=== PATIENT | female | born 1955 | race Caucasian/White ===

== ENCOUNTER 2019-07-17 11:22 | Inpatient (IN) ==
[2019-07-17] MEDS ORDERED: SODIUM CHLORIDE 0.9% 1,000 ML IV STA ×2 (11:58→12:52)
[2019-07-17] MEDS ORDERED: ALBUTEROL 2.5 MG/3 ML NEB RESP TX STA (11:58)
[2019-07-17] MEDS ORDERED: PIPERACILLIN/TAZOBACTAM 3,375 MG in SODIUM CHLORIDE 0.9% 100 ML IV STA (12:19)
[2019-07-17 12:21] LABS: ABG Base Excess -1.7 MMOL/L (-2.5-2.5); ABG HCO3 22.9 MMOL/L (20-26); ABG PCO2 28.3 MM HG (35-48); ABG PH 7.472 (7.35-7.45); ABG PO2 65.6 MM HG (80-95); Allen Test Positive
[2019-07-17] MEDS ORDERED: methylPREDNISolone SOD SUC 125 MG/2 ML VIAL IV STA (12:51)
[2019-07-17 13:08] LABS: Basophils # 0.1 10*3/uL (0.0-0.2); Basophils % 0.4 % (0.0-0.8); Eosinophils # 0.1 10*3/uL (0.0-0.87); Eosinophils % 0.5 % (0.00-10.9); Hematocrit 36.9 VOL% (35.7-47.0); Hemoglobin 11.7 GM/DL (12.0-16.0); Immature Granulocytes % 0.4 %; Immature Granulocytes Absolute 0.05 #; Lymphocytes # 2.3 10*3/uL (1.4-4.0); Lymphocytes % 18.7 % (21.3-54.2); Mean Corpuscular HGB Conc 31.7 GM/DL (32-36); Mean Corpuscular Volume 87.2 FL (87-102); Monocytes % 6.4 % (1.7-12.7); Neutrophils % 73.6 % (38.7-73.9); Platelet Count 416 T/CUMM (130-400); Red Blood Count 4.23 MC/CUMM (3.8-5.5); White Blood Count 12.3 T/CUMM (4-12)
[2019-07-17 13:17] LABS: Partial Thromboplastin Time 32.8 SECS (20.8-36.0)
[2019-07-17 13:24] LABS: PT Patient Result 42.8 SECS (9.6-12.2)
[2019-07-17 14:18] LABS: Alanine Aminotransferase 116 U/L (13-56); Alkaline Phosphatase 91 U/L (45-117); Aspartate Amino Transferase 393 U/L (0-37); Bilirubin,Total < 0.39 MG/DL (0.2-1.0); Blood Urea Nitrogen 8 MG/DL (7-18); Calcium 8.7 MG/DL (8.5-10.1); Estimated Glom Filtration Rate 80 ML/MIN; Glucose 108 MG/DL (74-106); Osmolality,Calculated 277.4 MOS/KG (273-304)
[2019-07-17 14:31] LABS: Apearance,Urine CLEAR (Clear); Bilirubin,Urine Negative (Negative); Blood, Urine Negative (Negative); Glucose,Urine (UA) Negative (Negative); Ketones,Urine Negative (Negative); Nitrite,Urine Negative (Negative); Protein,Urine Negative; RBC,Urine 1 /HPF (0-4); Urine Color Yellow (Yellow); Urine Specific Gravity 1.013 (1.001-1.035); Urine Urobilinogen < 2.0 EU/DL (0.2-1.0); WBC,Urine 1 /HPF (0-6)
[2019-07-17] MEDS ORDERED: SODIUM CHLORIDE 0.45% 1,000 ML IV SCH (15:30)
[2019-07-17] MEDS ORDERED: hydrALAZINE 20 MG/1 ML VIAL IV PRN (15:51)
[2019-07-17] MEDS: ALBUTEROL/IPRATROPIUM 3 ML NEB RESP TX SCH ×3 (16:10→22:50)
[2019-07-17] MEDS ORDERED: INFLUENZA VIRUS VACCINE 0.5 ML SYRINGE IM ONE (16:28)
[2019-07-17] MEDS: LEVOFLOXACIN INJ 500 MG in PREMIX 1 EACH IV SCH (17:01)
[2019-07-17] MEDS: methylPREDNISolone SOD SUC 125 MG/2 ML VIAL IV SCH (22:35)
[2019-07-17] MEDS: SIMVASTATIN 40 MG TABLET PO SCH (22:35)
[2019-07-17] MEDS: MONTELUKAST 10 MG TABLET PO SCH (22:35)
[2019-07-18] MEDS: ALBUTEROL/IPRATROPIUM 3 ML NEB RESP TX SCH ×6 (02:35→23:30)
[2019-07-18] MEDS ORDERED: MORPHINE 4 MG/1 ML VIAL ONE (03:08)
[2019-07-18] MEDS ORDERED: NITROGLYCERIN SL 0.4 MG TABLET SL ONE (03:09)
[2019-07-18] MEDS: NITROGLYCERIN SL 0.4 MG TABLET SL PRN ×2 (03:13→03:18)
[2019-07-18] MEDS: MORPHINE 4 MG/1 ML VIAL IV PRN ×5 (03:22→12:21)
[2019-07-18 03:24] LABS: ABG Base Excess -4.3 MMOL/L (-2.5-2.5); ABG HCO3 20.8 MMOL/L (20-26); ABG Oxygen Saturation 94.3 % (95-100); ABG PCO2 28.7 MM HG (35-48); ABG PH 7.426 (7.35-7.45); ABG PO2 68.8 MM HG (80-95); ABG TCO2 16.7 MMOL/L (23-27)
[2019-07-18] MEDS ORDERED: FUROSEMIDE 20 MG/2 ML VIAL IV ONE (03:32)
[2019-07-18 03:40] LABS: Basophils % 0.1 % (0.0-0.8); Hematocrit 35.2 VOL% (35.7-47.0); Hemoglobin 11.1 GM/DL (12.0-16.0); Immature Granulocytes % 0.6 %; Immature Granulocytes Absolute 0.07 #; Lymphocytes # 0.8 10*3/uL (1.4-4.0); Lymphocytes % 6.8 % (21.3-54.2); Mean Corpuscular HGB Conc 31.5 GM/DL (32-36); Mean Corpuscular Volume 86.7 FL (87-102); Monocytes % 2.1 % (1.7-12.7); Neutrophils % 90.4 % (38.7-73.9); Platelet Count 471 T/CUMM (130-400); Red Blood Count 4.06 MC/CUMM (3.8-5.5); Red Cell Distribution Width 17.1 % (9.3-17.3); White Blood Count 11.4 T/CUMM (4-12)
[2019-07-18 04:05] LABS: Calcium 7.5 MG/DL (8.5-10.1); Osmolality,Calculated 289.8 MOS/KG (273-304)
[2019-07-18 04:15] LABS: CKMB % 0.2 %; Troponin I < 0.015 NG/ML (0.00-0.045)
[2019-07-18 08:31] LABS: CKMB % 0.2 %; Troponin I < 0.015 NG/ML (0.00-0.045)
[2019-07-18] MEDS: methylPREDNISolone SOD SUC 125 MG/2 ML VIAL IV SCH (08:36)
[2019-07-18] MEDS: LEVOFLOXACIN INJ 500 MG in PREMIX 1 EACH IV SCH (08:36)
[2019-07-18] MEDS: methylPREDNISolone SOD SUC 40 MG/1 ML VIAL IV SCH ×2 (12:18→22:38)
[2019-07-18] MEDS: oxyCODONE/ACETAMINOPHEN 5-325 MG TABLET PO SCH ×3 (12:22→23:57)
[2019-07-18 13:35] LABS: CKMB % 0.2 %; Troponin I < 0.015 NG/ML (0.00-0.045)
[2019-07-18 17:25] LABS: Troponin I < 0.015 NG/ML (0.00-0.045)
[2019-07-18] MEDS: SIMVASTATIN 40 MG TABLET PO SCH (20:54)
[2019-07-18] MEDS: MONTELUKAST 10 MG TABLET PO SCH (20:55)
[2019-07-18] MEDS: DOXEPIN 100 MG CAPSULE PO SCH (20:55)
[2019-07-18] MEDS: OLANZapine 5 MG TABLET PO SCH (20:55)
[2019-07-18] MEDS: METOPROLOL TARTRATE 25 MG TABLET PO SCH (20:55)
[2019-07-18] MEDS ORDERED: traZODone 50 MG TABLET PO ONE (23:18)
[2019-07-19] MEDS: ALBUTEROL/IPRATROPIUM 3 ML NEB RESP TX SCH ×6 (03:09→23:37)
[2019-07-19 05:23] LABS: Basophils % 0.2 % (0.0-0.8); Hematocrit 33.2 VOL% (35.7-47.0); Hemoglobin 10.5 GM/DL (12.0-16.0); Immature Granulocytes % 1.1 %; Immature Granulocytes Absolute 0.21 #; Lymphocytes # 1.2 10*3/uL (1.4-4.0); Lymphocytes % 6.4 % (21.3-54.2); Mean Corpuscular HGB Conc 31.6 GM/DL (32-36); Mean Corpuscular Volume 88.1 FL (87-102); Mean Platelet Volume 9.4 FL (9.6-12.0); Monocytes % 3.2 % (1.7-12.7); Neutrophils % 89.1 % (38.7-73.9); Platelet Count 507 T/CUMM (130-400); Red Blood Count 3.77 MC/CUMM (3.8-5.5); Red Cell Distribution Width 17.7 % (9.3-17.3); White Blood Count 19.2 T/CUMM (4-12)
[2019-07-19 05:29] LABS: INR 2.4
[2019-07-19 05:30] LABS: PT Patient Result 25.9 SECS (9.6-12.2)
[2019-07-19 05:50] LABS: Calcium 9.7 MG/DL (8.5-10.1); Osmolality,Calculated 293.6 MOS/KG (273-304)
[2019-07-19] MEDS: oxyCODONE/ACETAMINOPHEN 5-325 MG TABLET PO SCH ×4 (06:27→23:44)
[2019-07-19] MEDS: LEVOFLOXACIN INJ 500 MG in PREMIX 1 EACH IV SCH (08:17)
[2019-07-19] MEDS: BENZTROPINE 1 MG TABLET PO SCH (08:18)
[2019-07-19] MEDS: FLUoxetine 10 MG CAPSULE PO SCH (08:18)
[2019-07-19] MEDS: METOPROLOL TARTRATE 25 MG TABLET PO SCH ×2 (08:18→21:18)
[2019-07-19] MEDS: methylPREDNISolone SOD SUC 40 MG/1 ML VIAL IV SCH ×2 (12:23→23:46)
[2019-07-19] MEDS: OLANZapine 5 MG TABLET PO SCH (21:17)
[2019-07-19] MEDS: MONTELUKAST 10 MG TABLET PO SCH (21:18)
[2019-07-19] MEDS: DOXEPIN 100 MG CAPSULE PO SCH (21:18)
[2019-07-20] MEDS: ALBUTEROL/IPRATROPIUM 3 ML NEB RESP TX SCH ×6 (03:43→23:09)
[2019-07-20] MEDS: oxyCODONE/ACETAMINOPHEN 5-325 MG TABLET PO SCH ×4 (06:12→23:31)
[2019-07-20 08:13] LABS: INR 1.5; PT Patient Result 16.3 SECS (9.6-12.2)
[2019-07-20 08:40] LABS: Alanine Aminotransferase 69 U/L (13-56); Albumin 2.5 G/DL (3.4-5.0); Alkaline Phosphatase 68 U/L (45-117); Aspartate Amino Transferase 50 U/L (0-37); Bilirubin,Direct < 0.100 MG/DL (0.0-0.20); Bilirubin,Indirect 0.3 MG/DL (0.0-1.0); Bilirubin,Total < 0.39 MG/DL (0.2-1.0); Total Protein 6.7 G/DL (6.4-8.3)
[2019-07-20 10:06] LABS: INR 1.5; PT Patient Result 16.1 SECS (9.6-12.2)
[2019-07-20] MEDS: LEVOFLOXACIN INJ 500 MG in PREMIX 1 EACH IV SCH (10:22)
[2019-07-20] MEDS: METOPROLOL TARTRATE 25 MG TABLET PO SCH ×2 (10:32→20:07)
[2019-07-20] MEDS: BENZTROPINE 1 MG TABLET PO SCH (10:32)
[2019-07-20] MEDS: LEVOFLOXACIN 500 MG TABLET PO SCH (10:32)
[2019-07-20] MEDS: methylPREDNISolone SOD SUC 40 MG/1 ML VIAL IV SCH ×2 (10:32→23:29)
[2019-07-20] MEDS: FLUoxetine 10 MG CAPSULE PO SCH (10:32)
[2019-07-20] MEDS: DOXEPIN 100 MG CAPSULE PO SCH (20:06)
[2019-07-20] MEDS: MONTELUKAST 10 MG TABLET PO SCH (20:07)
[2019-07-20] MEDS: OLANZapine 5 MG TABLET PO SCH (20:07)
[2019-07-20] MEDS: MORPHINE 4 MG/1 ML VIAL IV PRN (21:48)
[2019-07-20] MEDS: WARFARIN 5 MG TABLET PO SCH (21:51)
[2019-07-21] MEDS: ALBUTEROL/IPRATROPIUM 3 ML NEB RESP TX SCH ×5 (03:21→19:34)
[2019-07-21 05:07] LABS: Basophils % 0.1 % (0.0-0.8); Hematocrit 34.8 VOL% (35.7-47.0); Hemoglobin 10.8 GM/DL (12.0-16.0); Immature Granulocytes % 1.3 %; Lymphocytes # 1.7 10*3/uL (1.4-4.0); Lymphocytes % 11.4 % (21.3-54.2); Mean Corpuscular Volume 88.3 FL (87-102); Mean Platelet Volume 9.4 FL (9.6-12.0); Monocytes % 2.7 % (1.7-12.7); Neutrophils % 84.5 % (38.7-73.9); Platelet Count 573 T/CUMM (130-400); Red Blood Count 3.94 MC/CUMM (3.8-5.5); Red Cell Distribution Width 17.6 % (9.3-17.3); White Blood Count 15.3 T/CUMM (4-12)
[2019-07-21 05:12] LABS: INR 1.2; PT Patient Result 12.7 SECS (9.6-12.2)
[2019-07-21] MEDS: oxyCODONE/ACETAMINOPHEN 5-325 MG TABLET PO SCH ×3 (05:44→18:05)
[2019-07-21] MEDS: METOPROLOL TARTRATE 25 MG TABLET PO SCH ×2 (08:05→20:39)
[2019-07-21] MEDS: FLUoxetine 10 MG CAPSULE PO SCH (08:06)
[2019-07-21] MEDS: BENZTROPINE 1 MG TABLET PO SCH (08:06)
[2019-07-21] MEDS: LEVOFLOXACIN 500 MG TABLET PO SCH (09:03)
[2019-07-21] MEDS ORDERED: BISACODYL 10 MG SUPP RECTAL ONE (09:17)
[2019-07-21] MEDS: POLYETHYLENE GLYCOL POWDER 17 GM PACK PO SCH (09:36)
[2019-07-21] MEDS: methylPREDNISolone SOD SUC 40 MG/1 ML VIAL IV SCH ×2 (11:12→23:25)
[2019-07-21] MEDS: ALUMINUM/MAGNES/SIMETH MAX STR 30 ML UDCUP PO PRN (11:50)
[2019-07-21] MEDS: MONTELUKAST 10 MG TABLET PO SCH (20:39)
[2019-07-21] MEDS: WARFARIN 5 MG TABLET PO SCH (20:39)
[2019-07-21] MEDS: DOXEPIN 100 MG CAPSULE PO SCH (20:40)
[2019-07-21] MEDS: OLANZapine 5 MG TABLET PO SCH (20:40)
[2019-07-22] MEDS: oxyCODONE/ACETAMINOPHEN 5-325 MG TABLET PO SCH ×4 (00:03→18:27)
[2019-07-22] MEDS: ALBUTEROL/IPRATROPIUM 3 ML NEB RESP TX SCH ×7 (00:14→23:20)
[2019-07-22] MEDS: FLUoxetine 10 MG CAPSULE PO SCH (08:32)
[2019-07-22] MEDS: METOPROLOL TARTRATE 25 MG TABLET PO SCH ×2 (08:32→20:04)
[2019-07-22] MEDS: POLYETHYLENE GLYCOL POWDER 17 GM PACK PO SCH (08:32)
[2019-07-22] MEDS: BENZTROPINE 1 MG TABLET PO SCH (08:32)
[2019-07-22] MEDS: LEVOFLOXACIN 500 MG TABLET PO SCH (08:34)
[2019-07-22] MEDS: predniSONE 20 MG TABLET PO SCH (09:51)
[2019-07-22 16:44] LABS: INR 1.6; PT Patient Result 17.2 SECS (9.6-12.2)
[2019-07-22] MEDS: ALUMINUM/MAGNES/SIMETH MAX STR 30 ML UDCUP PO PRN (19:46)
[2019-07-22] MEDS: WARFARIN 5 MG TABLET PO SCH (20:04)
[2019-07-22] MEDS: OLANZapine 5 MG TABLET PO SCH (20:04)
[2019-07-22] MEDS: MONTELUKAST 10 MG TABLET PO SCH (20:04)
[2019-07-22] MEDS: DOXEPIN 100 MG CAPSULE PO SCH (20:04)
[2019-07-23] MEDS: oxyCODONE/ACETAMINOPHEN 5-325 MG TABLET PO SCH ×3 (02:20→09:28)
[2019-07-23] MEDS: ALBUTEROL/IPRATROPIUM 3 ML NEB RESP TX SCH ×6 (04:00→23:20)
[2019-07-23 05:27] LABS: Basophils % 0.2 % (0.0-0.8); Eosinophils % 0.1 % (0.00-10.9); Hematocrit 34.1 VOL% (35.7-47.0); Hemoglobin 10.5 GM/DL (12.0-16.0); Immature Granulocytes % 1.2 %; Immature Granulocytes Absolute 0.22 #; Lymphocytes # 4.6 10*3/uL (1.4-4.0); Lymphocytes % 24.9 % (21.3-54.2); Mean Corpuscular HGB Conc 30.8 GM/DL (32-36); Mean Corpuscular Volume 88.1 FL (87-102); Mean Platelet Volume 9.1 FL (9.6-12.0); Monocytes % 7.1 % (1.7-12.7); Neutrophils % 66.5 % (38.7-73.9); Platelet Count 592 T/CUMM (130-400); Red Blood Count 3.87 MC/CUMM (3.8-5.5); Red Cell Distribution Width 17.4 % (9.3-17.3); White Blood Count 18.3 T/CUMM (4-12)
[2019-07-23 05:28] LABS: INR 1.6; PT Patient Result 17.4 SECS (9.6-12.2)
[2019-07-23 06:05] LABS: Albumin 2.5 G/DL (3.4-5.0); Bilirubin,Total 0.4 MG/DL (0.2-1.0); Calcium 9.2 MG/DL (8.5-10.1); Osmolality,Calculated 292.4 MOS/KG (273-304); Total Protein 6.1 G/DL (6.4-8.3)
[2019-07-23] MEDS: POLYETHYLENE GLYCOL POWDER 17 GM PACK PO SCH (09:25)
[2019-07-23] MEDS: LEVOFLOXACIN 500 MG TABLET PO SCH (09:26)
[2019-07-23] MEDS: METOPROLOL TARTRATE 25 MG TABLET PO SCH ×2 (09:26→21:33)
[2019-07-23] MEDS: predniSONE 20 MG TABLET PO SCH (09:26)
[2019-07-23] MEDS: BENZTROPINE 1 MG TABLET PO SCH (09:26)
[2019-07-23] MEDS: FLUoxetine 10 MG CAPSULE PO SCH (09:26)
[2019-07-23] MEDS: ALUMINUM/MAGNES/SIMETH MAX STR 30 ML UDCUP PO PRN ×2 (12:25→17:40)
[2019-07-23] MEDS ORDERED: WARFARIN 5 MG TABLET PO SCH (18:00)
[2019-07-23] MEDS: MONTELUKAST 10 MG TABLET PO SCH (21:33)
[2019-07-23] MEDS: OLANZapine 5 MG TABLET PO SCH (21:33)
[2019-07-23] MEDS: DOXEPIN 100 MG CAPSULE PO SCH (21:33)
[2019-07-23] MEDS: oxyCODONE/ACETAMINOPHEN 5-325 MG TABLET PO PRN (21:34)
[2019-07-24] MEDS: ALBUTEROL/IPRATROPIUM 3 ML NEB RESP TX SCH ×5 (03:30→19:37)
[2019-07-24 04:54] LABS: Basophils % 0.1 % (0.0-0.8); Eosinophils % 0.2 % (0.00-10.9); Hematocrit 34.6 VOL% (35.7-47.0); Hemoglobin 10.9 GM/DL (12.0-16.0); Immature Granulocytes % 1.4 %; Immature Granulocytes Absolute 0.22 #; Lymphocytes # 3.5 10*3/uL (1.4-4.0); Mean Corpuscular HGB Conc 31.5 GM/DL (32-36); Mean Corpuscular Volume 87.4 FL (87-102); Mean Platelet Volume 9.1 FL (9.6-12.0); Monocytes % 6.3 % (1.7-12.7); Platelet Count 589 T/CUMM (130-400); Red Blood Count 3.96 MC/CUMM (3.8-5.5); Red Cell Distribution Width 17.2 % (9.3-17.3); White Blood Count 15.7 T/CUMM (4-12)
[2019-07-24 05:29] LABS: Calcium 9.2 MG/DL (8.5-10.1); Osmolality,Calculated 290.6 MOS/KG (273-304)
[2019-07-24 05:39] LABS: PT Patient Result 22.1 SECS (9.6-12.2)
[2019-07-24] MEDS: oxyCODONE/ACETAMINOPHEN 5-325 MG TABLET PO PRN (09:02)
[2019-07-24] MEDS: predniSONE 20 MG TABLET PO SCH (09:02)
[2019-07-24] MEDS: FLUoxetine 10 MG CAPSULE PO SCH (09:03)
[2019-07-24] MEDS: BENZTROPINE 1 MG TABLET PO SCH (09:03)
[2019-07-24] MEDS: LEVOFLOXACIN 500 MG TABLET PO SCH (09:03)
[2019-07-24] MEDS: METOPROLOL TARTRATE 25 MG TABLET PO SCH ×2 (09:03→20:41)
[2019-07-24] MEDS: POLYETHYLENE GLYCOL POWDER 17 GM PACK PO SCH (09:04)
[2019-07-24] MEDS ORDERED: ALUM/MAG/SIMETH/LIDO VISC 1:1 30 ML BOTTLE PO ONE (12:00)
[2019-07-24] MEDS: ONDANSETRON 4 MG/2 ML VIAL IV PRN (17:33)
[2019-07-24] MEDS ORDERED: WARFARIN 2.5 MG TABLET PO SCH (18:00)
[2019-07-24] MEDS: DOXEPIN 100 MG CAPSULE PO SCH (20:41)
[2019-07-24] MEDS: OLANZapine 5 MG TABLET PO SCH (20:41)
[2019-07-24] MEDS: MONTELUKAST 10 MG TABLET PO SCH (20:41)
[2019-07-25] MEDS: ALBUTEROL/IPRATROPIUM 3 ML NEB RESP TX SCH ×4 (03:15→13:46)
[2019-07-25 07:01] LABS: INR 2.7
[2019-07-25 07:19] LABS: PT Patient Result 29.4 SECS (9.6-12.2)
[2019-07-25] MEDS: ONDANSETRON 4 MG/2 ML VIAL IV PRN ×2 (08:03→14:31)
[2019-07-25] MEDS: POLYETHYLENE GLYCOL POWDER 17 GM PACK PO SCH (08:03)
[2019-07-25] MEDS: ALUMINUM/MAGNES/SIMETH MAX STR 30 ML UDCUP PO PRN ×2 (08:04→14:31)
[2019-07-25] MEDS: BENZTROPINE 1 MG TABLET PO SCH (09:35)
[2019-07-25] MEDS: FLUoxetine 10 MG CAPSULE PO SCH (09:35)
[2019-07-25] MEDS: predniSONE 20 MG TABLET PO SCH (09:35)
[2019-07-25] MEDS: METOPROLOL TARTRATE 25 MG TABLET PO SCH (09:41)
[2019-07-25] MEDS: oxyCODONE/ACETAMINOPHEN 5-325 MG TABLET PO PRN (13:07)
[2019-07-25 16:39] VITALS: BP 104/78
== END 2019-07-25 16:43 | DRG 191 ==
LOC: EDBD → EDUNIT# → N.ED 11:22 → N.EDINP 14:09 → SUATTDRO 14:09 → N.ICU 15:00 → N.5E 07-18 16:48
PROVIDERS: ADMIT Internal Medicine; ATTEND Internal Medicine

== ENCOUNTER 2020-01-16 21:44 | Inpatient (IN) ==
[2020-01-16] MEDS ORDERED: NALOXONE 0.4 MG/ML VIAL IV STA (22:19)
[2020-01-16] MEDS ORDERED: NALOXONE 0.4 MG/ML VIAL ONE ×2 (22:23)
[2020-01-16] MEDS ORDERED: ALBUTEROL NEB SOLN 5 MG/ML 20 ML/BOTTLE CONT NEB SCH (22:30)
[2020-01-16] MEDS ORDERED: cefTRIAXone 1,000 MG in SODIUM CHLORIDE 0.9% 100 ML IV STA (22:49)
[2020-01-16] MEDS ORDERED: AZITHROMYCIN INJ 500 MG in SODIUM CHLORIDE 0.9% 250 ML IV STA (22:49)
[2020-01-16 23:45] LABS: Albumin 3.2 G/DL (3.4-5.0); Bilirubin,Total 0.4 MG/DL (0.2-1.0); Calcium 9.5 MG/DL (8.5-10.1); Osmolality,Calculated 278.4 MOS/KG (273-304); Total Protein 8.3 G/DL (6.4-8.3)
[2020-01-16 23:46] LABS: Basophils # 0.1 10*3/uL (0.0-0.2); Basophils % 0.4 % (0.0-0.8); Eosinophils % 0.1 % (0.00-10.9); Hematocrit 32.3 VOL% (35.7-47.0); Hemoglobin 9.8 GM/DL (12.0-16.0); Immature Granulocytes % 0.5 %; Immature Granulocytes Absolute 0.07 #; Lymphocytes # 2.6 10*3/uL (1.4-4.0); Lymphocytes % 19.4 % (21.3-54.2); Mean Corpuscular HGB Conc 30.3 GM/DL (32-36); Mean Corpuscular Volume 81.4 FL (87-102); Mean Platelet Volume 9.2 FL (9.6-12.0); Monocytes % 8.7 % (1.7-12.7); NRBC # 0.02 10*3/uL; Neutrophils % 70.9 % (38.7-73.9); Platelet Count 490 T/CUMM (130-400); Red Blood Count 3.97 MC/CUMM (3.8-5.5); Red Cell Distribution Width 15.3 % (9.3-17.3); White Blood Count 13.4 T/CUMM (4-12)
[2020-01-16 23:58] LABS: INR 1.3; PT Patient Result 14.1 SECS (9.8-11.9); Partial Thromboplastin Time 29.1 SECS (23.9-33.8)
[2020-01-17 00:42] LABS: ABG Base Excess -3.4 MMOL/L (-2.5-2.5); ABG HCO3 21.5 MMOL/L (20-26); ABG Oxygen Saturation 97.1 % (95-100); ABG PH 7.404 (7.35-7.45); ABG PO2 90.3 MM HG (80-95); ABG TCO2 18.8 MMOL/L (23-27)
[2020-01-17] MEDS ORDERED: hydrALAZINE 20 MG/1 ML VIAL IV PRN (01:24)
[2020-01-17] MEDS ORDERED: MORPHINE 4 MG/1 ML VIAL IV PRN (01:24)
[2020-01-17] MEDS ORDERED: diphenhydrAMINE CAP 25 MG CAPSULE PO PRN (01:24)
[2020-01-17] MEDS ORDERED: ONDANSETRON 4 MG/2 ML VIAL IV PRN (01:24)
[2020-01-17] MEDS ORDERED: PROMETHAZINE 25 MG/1 ML VIAL IM PRN (01:24)
[2020-01-17] MEDS ORDERED: ACETAMINOPHEN 325 MG TABLET PO PRN (01:24)
[2020-01-17] MEDS ORDERED: DEXTROSE 50% 25 GM/50 ML VIAL IV PRN (01:24)
[2020-01-17] MEDS ORDERED: NICOTINE 21 MG/24 HR PATCH TRANSDERM PRN (01:24)
[2020-01-17] MEDS ORDERED: ZALEPLON 5 MG CAPSULE PO PRN (01:24)
[2020-01-17] MEDS ORDERED: GLUCAGON 1 MG VIAL IM PRN (01:24)
[2020-01-17 05:28] LABS: Basophils % 0.3 % (0.0-0.8); Eosinophils % 0.2 % (0.00-10.9); Hematocrit 29.2 VOL% (35.7-47.0); Hemoglobin 9.2 GM/DL (12.0-16.0); Immature Granulocytes % 0.4 %; Immature Granulocytes Absolute 0.05 #; Lymphocytes # 1.9 10*3/uL (1.4-4.0); Lymphocytes % 15.7 % (21.3-54.2); Mean Corpuscular HGB Conc 31.5 GM/DL (32-36); Mean Corpuscular Volume 79.3 FL (87-102); Mean Platelet Volume 9.4 FL (9.6-12.0); Monocytes % 9.7 % (1.7-12.7); Neutrophils % 73.7 % (38.7-73.9); Platelet Count 444 T/CUMM (130-400); Red Blood Count 3.68 MC/CUMM (3.8-5.5); Red Cell Distribution Width 15.4 % (9.3-17.3)
[2020-01-17 05:56] LABS: Calcium 9.2 MG/DL (8.5-10.1); Osmolality,Calculated 277.5 MOS/KG (273-304)
[2020-01-17] MEDS: ALBUTEROL/IPRATROPIUM 3 ML NEB RESP TX SCH ×2 (07:10→13:17)
[2020-01-17] MEDS: POTASSIUM CHLORIDE 20 MEQ TABLET PO SCH (09:05)
[2020-01-17] MEDS: tiZANidine 4 MG TABLET PO SCH (09:05)
[2020-01-17] MEDS: DOCUSATE SODIUM 100 MG CAPSULE PO SCH ×2 (09:05→21:42)
[2020-01-17] MEDS: FLUoxetine 10 MG CAPSULE PO SCH (09:05)
[2020-01-17] MEDS: FERROUS SULFATE 325 MG TABLET PO SCH ×3 (09:05→21:43)
[2020-01-17] MEDS: PANTOPRAZOLE 40 MG TABLET PO SCH (09:06)
[2020-01-17 11:28] LABS: Alanine Aminotransferase 19 U/L (13-56); Albumin 2.7 G/DL (3.4-5.0); Alkaline Phosphatase 79 U/L (45-117); Aspartate Amino Transferase 18 U/L (0-37); Bilirubin,Indirect 0.3 MG/DL (0.0-1.0); Bilirubin,Total < 0.39 MG/DL (0.2-1.0); Total Protein 7.4 G/DL (6.4-8.3)
[2020-01-17] MEDS ORDERED: AZITHROMYCIN 250 MG TABLET PO SCH (21:00)
[2020-01-17] MEDS ORDERED: SIMVASTATIN 40 MG TABLET PO SCH (21:00)
[2020-01-17] MEDS ORDERED: cefTRIAXone 1,000 MG in SYRINGE 1 EACH IV SCH (21:00)
[2020-01-17] MEDS ORDERED: AZITHROMYCIN INJ 500 MG in SODIUM CHLORIDE 0.9% 250 ML IV SCH (21:00)
[2020-01-18 04:41] LABS: Basophils # 0.1 10*3/uL (0.0-0.2); Basophils % 0.3 % (0.0-0.8); Eosinophils # 0.1 10*3/uL (0.0-0.87); Eosinophils % 0.5 % (0.00-10.9); Hematocrit 28.2 VOL% (35.7-47.0); Hemoglobin 8.6 GM/DL (12.0-16.0); Immature Granulocytes % 0.5 %; Immature Granulocytes Absolute 0.08 #; Lymphocytes # 2.3 10*3/uL (1.4-4.0); Lymphocytes % 15.1 % (21.3-54.2); Mean Corpuscular HGB Conc 30.5 GM/DL (32-36); Mean Platelet Volume 9.9 FL (9.6-12.0); Neutrophils % 75.6 % (38.7-73.9); Platelet Count 496 T/CUMM (130-400); Red Blood Count 3.48 MC/CUMM (3.8-5.5); Red Cell Distribution Width 15.5 % (9.3-17.3); White Blood Count 15.2 T/CUMM (4-12)
[2020-01-18 05:08] LABS: Calcium 9.2 MG/DL (8.5-10.1); Osmolality,Calculated 273.7 MOS/KG (273-304)
[2020-01-18] MEDS: PANTOPRAZOLE 40 MG TABLET PO SCH (09:23)
[2020-01-18] MEDS: FERROUS SULFATE 325 MG TABLET PO SCH ×2 (09:23→15:29)
[2020-01-18] MEDS: DOCUSATE SODIUM 100 MG CAPSULE PO SCH (09:23)
[2020-01-18] MEDS: FLUoxetine 10 MG CAPSULE PO SCH (09:23)
[2020-01-18] MEDS: POTASSIUM CHLORIDE 20 MEQ TABLET PO SCH (09:23)
[2020-01-18] MEDS: tiZANidine 4 MG TABLET PO SCH (09:24)
[2020-01-18] MEDS ORDERED: ENOXAPARIN 40 MG/0.4 ML SYRINGE SUBCUT SCH (09:30)
[2020-01-18] MEDS ORDERED: ENOXAPARIN 80 MG/0.8 ML SYRINGE SUBCUT SCH (10:00)
[2020-01-18 10:09] LABS: INR 1.2; PT Patient Result 12.4 SECS (9.8-11.9)
[2020-01-18 12:31] VITALS: BP 113/82
[2020-01-18] MEDS ORDERED: WARFARIN 5 MG TABLET PO ONE (15:00)
[2020-01-18] MEDS ORDERED: WARFARIN 2.5 MG TABLET PO SCH (21:00)
== END 2020-01-18 16:30 | disposition home health service (06) | DRG 535 ==
LOC: EDUNIT# → EDBD → N.ED 21:44 → SUATTDRO 01-17 01:24 → N.EDINP 01-17 01:24 → N.TELES 01-17 03:19 → N.2W 01-17 15:26
PROVIDERS: ADMIT Internal Medicine Geriatric Medicine; ATTEND Family Medicine